=== PATIENT | male | born 1990 | race Caucasian/White ===

== ENCOUNTER 2019-03-12 18:57 | Emergency (ER) | payer OTHER ==
[2019-03-12 20:10] VITALS: BP 140/96
--- NOTE | 2019-03-12 20:18 | UC ---
Complaint Male HPI - HPI Summary HPI Summary: Patient is 29 year old male , who present today to the urgent care with a concern for STD. He reports having a sexual contact with unknown female partner, and he has not contact his female partner anymore. 1.5 days penile redness at meatus, clear then cloudy drainage. meatus is tender and sensitive. He is concerned about HIV . Denies any testicular pain or dysuria. - History of Current Complaint Chief Complaint: UCGU Stated Complaint: PERSONAL Time Seen by Provider: 03/12/19 20:03 Hx Obtained From: Patient Pain Intensity: 1 - Allergies/Home Medications Allergies/Adverse Reactions: Allergies Allergy/AdvReac Type Severity Reaction Status Date / Time No Known Allergies Allergy Verified 03/12/19 19:53 Home Medications: Home Medications Trazodone HCl 100 mg PO QPM PRN 03/12/19 [History Confirmed 03/12/19] buPROPion HCl [Bupropion HCl ER] 300 mg PO DAILY 03/12/19 [History Confirmed ] hydrOXYzine HCL TAB* [Atarax 25 MG TAB*] 25 mg PO BID 03/12/19 [History Confirmed 03/12/19] PMH/Surg Hx/FS Hx/Imm Hx - Additional Past Medical History Additional PMH: Past Medical History : None Past Surgical History: No Past History of Procedure Family History : non contributory Social History : Weekly alcohol, daily smoker, marijuana use. Previously Healthy: Yes - Surgical History Surgical History: Yes Surgery Procedure, Year, and Place: fistulotomy 2016 - Family History Known Family History: Positive: Non-Contributory - Social History Alcohol Use: Weekly Alcohol Amount: 2-8 Substance Use Type: Excessive Caffeine, Marijuana Substance Use Comment - Amount & Last Used: marijuana 01/2019 Smoking Status (MU): Heavy Every Day Tobacco Smoker Review of Systems All Other Systems Reviewed And Are Negative: Yes Constitutional: Positive: Negative Skin: Positive: Negative Eyes: Positive: Negative ENT: Positive: Negative Respiratory: Positive: Negative Cardiovascular: Positive: Negative Gastrointestinal: Positive: Negative Genitourinary: Positive: Vaginal/Penile Burning, Vaginal/Penile Discharge, Vaginal/Penile Pain, Vaginal/Penile Tenderness. Negative: Dysuria Motor: Positive: Negative Neurovascular: Positive: Negative Musculoskeletal: Positive: Negative Neurological: Positive: Negative Psychological: Positive: Negative Is Patient Immunocompromised?: No Physical Exam - Summary Physical Exam Summary: Vital Signs Reviewed: Yes A+Ox3, no distress Eyes: Conjunctiva Clear ENT: Hearing grossly normal neck: supple Respiratory: Positive: No respiratory distress, No accessory muscle use Cardiovascular: skin color reflect adequate perfusion Musculoskeletal Exam: MACKENZIE x 4 without difficulty Neurological: Positive: Alert, ambulatory without difficulty Psychological: Positive: Normal Response To Family Skin: Positive: no rash, no ecchymosis Genitourinary: No testicular pain, no significant erythema or discharge noted at the penile meatus Triage Information Reviewed: Yes Vital Signs: Initial Vital Signs Temp 99 F 03/12/19 19:57 Pulse 96 03/12/19 19:57 Resp 15 03/12/19 19:57 BP 140/96 03/12/19 19:57 Pulse Ox 100 03/12/19 19:57 Vital Signs Reviewed: Yes Complaint Male Course/Dx - Course Course Of Treatment: During the visit today, we obtained the tests for STD screening. He was given 1 dose of azithromycin 1 g(he takes hydroxyzine I advised him to hold off hydroxyzine as he is getting the azithromycin and he did not take any hydroxyzine today) and 250 mg ceftriaxone IM. He was also given Flagyl to cover for Trichomonas. I advised her I advised him not to take any alcohol when you're on Flagyl. I advised him that Once results are available someone will call you if there is anything positive that needs additional treatment . Please start taking the medication as prescribed to the pharmacy . Return to your primary care doctor in 2 weeks or here for test of cure if you test positive for chlamydia. Patient expressed understanding . - Differential Dx/Diagnosis Provider Diagnosis: STD exposure Discharge ED - Sign-Out/Discharge Documenting (check all that apply): Patient Departure All imaging exams completed and their final reports reviewed: No Studies - Discharge Plan Condition: Stable Disposition: HOME Prescriptions: metroNIDAZOLE [Flagyl] 500 mg PO BID 7 Days #13 tablet Patient Education Materials: Sexually Transmitted Diseases (ED), Safe Sex (ED) Referrals: James Alvarez MD [Primary Care Provider] - If Needed Additional Instructions: Tests have been done to check . Once results are available someone will call you if there is anything positive that needs additional treatment . Please start taking the medication as prescribed to the pharmacy . Return to your primary care doctor in 2 weeks or here for test of cure if you test positive for chlamydia. Patients blood pressure slightly high in Urgent care today , plan follow up with PCP for better control Return to Urgent care / ER if symptoms get worse. - Billing Disposition and Condition Condition: STABLE Disposition: Home
[2019-03-12] MEDS ORDERED: Azithromycin TAB* 250 MG PO ONE (20:27)
[2019-03-12] MEDS ORDERED: Lidocaine 1% MPF ** 5 ML VIAL IM ONE (20:28)
[2019-03-12] MEDS ORDERED: cefTRIAXone VIAL(*) 250 MG VIAL IM ONE (20:28)
[2019-03-12] MEDS ORDERED: metroNIDAZOLE TAB* 250 MG PO ONE (20:36)
[2019-03-13 13:47] LABS: Hepatitis B Surface Antigen Nonreactive (Nonreactive)
[2019-03-13 14:00] LABS: HIV 4th Generation Nonreactive (Nonreactive)
[2019-03-13 14:04] LABS: Hepatitis C Antibody Negative (Negative)
[2019-03-13 16:58] LABS: Hepatitis B Surface Ab Indeterminate (Immune)
[2019-03-14 13:46] LABS: Chlamydia trachomatis NAA Negative (Negative); Neisseria gonorrhoeae (GC) NAA Negative (Negative)
[2019-03-15 00:18] LABS: HIV-1 RNA (PCR) Undetected copies/mL (Undetected)
== END 2019-03-12 21:23 | disposition home or self-care (01) ==
LOC: UCCORT 18:57
DX: N48.89 Other specified disorders of penis (principal); F17.290 Nicotine dependence, other tobacco product, uncomplicated
CPT/HCPCS: 36415; 86704; 86705; 86706; 86780; 86803; 87340; 87389; 87491; 87536; 87591; 96372; 99202; A9270-GY; G0463; J0696

== ENCOUNTER 2019-04-11 10:30 | Emergency (ER) | payer OTHER ==
[2019-04-11 11:00] VITALS: BP 127/83
[2019-04-11] MEDS ORDERED: cefTRIAXone VIAL(*) 250 MG VIAL IM ONE (11:44)
[2019-04-11] MEDS ORDERED: Azithromycin TAB* 250 MG PO ONE (11:44)
[2019-04-11] MEDS ORDERED: Lidocaine 1% MPF ** 5 ML VIAL IM ONE (11:44)
--- NOTE | 2019-04-11 12:09 | UC ---
Complaint Male HPI - HPI Summary HPI Summary: Patient is a 29-year-old male presenting with purulent discharge from penis x1 episode yesterday. Notes constant clear drainage from penis for the past month. He notes very mild "almost nonexistent" burning with urination. Eyes itching Notes possibility of aiden an STI. Denies lesions. Denies bleeding. Denies pain. Denies testicular pain and tenderness. Denies nausea, vomiting, diarrhea, and abdominal pain. Was seen here and tested for STIs. He was treated with azithromycin and Rocephin but everything came back negative. He states that his symptoms subsided some but never fully resolved. - History of Current Complaint Chief Complaint: UCGU Stated Complaint: RECHECK PERSONAL Hx Obtained From: Patient Onset/Duration: Gradual Onset, Lasting Weeks Pain Intensity: 0 - Allergies/Home Medications Allergies/Adverse Reactions: Allergies Allergy/AdvReac Type Severity Reaction Status Date / Time No Known Allergies Allergy Verified 04/11/19 10:47 Home Medications: Home Medications NK [No Home Medications Reported] 04/11/19 [History Confirmed 04/11/19] PMH/Surg Hx/FS Hx/Imm Hx Previously Healthy: Yes - Surgical History Surgical History: Yes Surgery Procedure, Year, and Place: fistulotomy 2016 - Family History Known Family History: Positive: Non-Contributory - Social History Alcohol Use: Weekly Alcohol Amount: 2-8 Substance Use Type: Excessive Caffeine, Marijuana Substance Use Comment - Amount & Last Used: marijuana 01/2019 Smoking Status (MU): Heavy Every Day Tobacco Smoker Type: Cigarettes Amount Used/How Often: 3/4 PPD Have You Smoked in the Last Year: Yes Review of Systems All Other Systems Reviewed And Are Negative: Yes Constitutional: Positive: Negative. Negative: Fever, Chills Respiratory: Positive: Negative Cardiovascular: Positive: Negative Gastrointestinal: Positive: Negative. Negative: Abdominal Pain, Vomiting, Diarrhea, Nausea Genitourinary: Positive: Vaginal/Penile Burning, Vaginal/Penile Discharge. Negative: Dysuria, Hematuria, Frequency, Urgency, Vaginal/Penile Itching, Vaginal/Penile Pain, Vaginal/Penile Tenderness, Ulceration/Lesion, Abnormal Bleeding Musculoskeletal: Positive: Negative Neurological: Positive: Negative Physical Exam Triage Information Reviewed: Yes Appearance: Well-Appearing, No Pain Distress, Well-Nourished Vital Signs: Initial Vital Signs Temp 98.3 F 04/11/19 10:49 Pulse 82 04/11/19 10:49 Resp 15 04/11/19 10:49 BP 127/83 04/11/19 10:49 Pulse Ox 100 04/11/19 10:49 Vital Signs Reviewed: Yes Eyes: Positive: Conjunctiva Clear ENT: Positive: Hearing grossly normal Neck: Positive: Supple Respiratory Exam: Normal Respiratory: Positive: Lungs clear, Normal breath sounds, No respiratory distress Cardiovascular Exam: Normal Cardiovascular: Positive: RRR Neurological: Positive: Alert Psychological: Positive: Age Appropriate Behavior Complaint Male Course/Dx - Course Course Of Treatment: Discussed with patient that we will send his urine for culture and that he will be tested for gonorrhea, chlamydia, Trichomonas. He verbally consented to being treated with azithromycin and Rocephin today. He received 1 g of azithromycin and 250 mg IM of Rocephin. Informed him that he will be notified with any positive results that warranted change in treatment. Instructed him to follow up with PCP if symptoms persist. Patient was understanding and agreed with the treatment plan. - Differential Dx/Diagnosis Provider Diagnosis: Abnormal penile discharge, without blood Discharge ED - Sign-Out/Discharge Documenting (check all that apply): Patient Departure All imaging exams completed and their final reports reviewed: No Studies - Discharge Plan Condition: Stable Disposition: HOME Patient Education Materials: Sexually Transmitted Diseases (ED), Safe Sex (ED) Referrals: James Alvarez MD [Primary Care Provider] - If Needed Additional Instructions: As discussed, you received a one time dose of Azithromycin and Rocephin for treatment of possible chlamydia and gonorrhea. Your urine was sent for culture and to test for gonorrhea, chlamydia, and trichomonas. You will be notified with any positive results that warrant a change in treatment. Follow up with your PCP or the referral listed below if your symptoms persist. - Billing Disposition and Condition Condition: STABLE Disposition: Home - Attestation Statements Provider Attestation: I was available for consult. This patient was seen by the ELIZABETH. The patient was not presented to, seen by, or examined by me. -Kortney
[2019-04-12 12:35] LABS: Chlamydia trachomatis NAA Negative (Negative); Neisseria gonorrhoeae (GC) NAA Negative (Negative)
== END 2019-04-11 12:24 | disposition home or self-care (01) ==
LOC: UCCORT 10:30
DX: R36.9 Urethral discharge, unspecified (principal); R39.89 Other symptoms and signs involving the genitourinary system; H57.89 Other specified disorders of eye and adnexa; F17.210 Nicotine dependence, cigarettes, uncomplicated
CPT/HCPCS: 87086; 87491; 87591; 96372; 99212; A9270-GY; G0463; J0696